=== PATIENT | female | born 1955 | race Caucasian/White ===

== ENCOUNTER 2017-07-27 05:53 | Day surgery (SDC) | payer BC, OTHER ==
[2017-07-22 17:58] VITALS: BMI 28.3
[2017-07-27] MEDS ORDERED: LIDOCAINE HCL/EPINEPHRINE/PF 20 ML VIAL ONE (07:08)
[2017-07-27] MEDS ORDERED: POVIDONE-IODINE 5% OPHTHALMIC PREP 30 ML SOLUTION ONE (07:08)
[2017-07-27] MEDS ORDERED: BACITRACIN 3.5 GM OPTHALMIC OINT TUBE ONE ×2 (07:08→10:18)
[2017-07-27] MEDS ORDERED: BUPIVACAINE HCL/PF 0.5% (5MG/ML) 10 ML VIAL ONE (07:09)
[2017-07-27] MEDS ORDERED: MIDAZOLAM HCL 2 MG/2 ML SINGLE DOSE VIAL ONE ×2 (07:18)
[2017-07-27] MEDS ORDERED: PROPOFOL 20 ML ONE ×2 (07:18→08:12)
[2017-07-27] MEDS ORDERED: ceFAZolin SODIUM 1 GM VIAL ONE (08:08)
[2017-07-27] MEDS ORDERED: ONDANSETRON 4 MG/2 ML VIAL ONE ×2 (08:08→09:36)
[2017-07-27] MEDS ORDERED: DEXAMETHASONE SOD PHOSPHATE 4 MG/1 ML VIAL ONE (08:08)
[2017-07-27] MEDS ORDERED: ONDANSETRON 4 MG/2 ML VIAL IVPUSH PRN (08:16)
[2017-07-27] MEDS ORDERED: oxyCODONE HCL 5 MG TABLET PO PRN (08:16)
[2017-07-27] MEDS ORDERED: LACTATED RINGERS SOLUTION 1,000 ML IV SCH (08:30)
[2017-07-27] MEDS ORDERED: ACETAMINOPHEN 500 MG TABLET (FP) PO PRN (08:47)
[2017-07-27] MEDS ORDERED: ONDANSETRON 4 MG/2 ML VIAL IVPUSH ONE (09:37)
[2017-07-27 10:24] VITALS: TEMP 97.8
[2017-07-27] MEDS ORDERED: oxyCODONE HCL 5 MG TABLET ONE (10:57)
[2017-07-27 11:37] VITALS: BP 132/68; PULSE 68
--- NOTE | 2017-07-27 17:13 | OP ---
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 PROCEDURE: 1. Eyelid marginal lid split and eyelid split with dissection into an anterior and posterior lamella. 2. Recession of anterior lamella with fixation 4 mm below the lid margin. SURGEON: Nabor Wiseman MD ANESTHESIA: Local with sedation. COMPLICATIONS: None. ESTIMATED BLOOD LOSS: 2-3 mL DESCRIPTION OF OPERATIVE PROCEDURE: Patient brought to the operating room, placed on the operating room table. Vital signs per Anesthesia. Tetracaine was placed in both eyes. The margin was marked after being examined, demonstrating that the [place] glands were completely inverted on the posterior surface of this shortened posterior lamella, necessitating an anterior lamella recession. Timeout was performed and the patient was subsequently given intravenous sedation and a 50/50 mixture of 2% Xylocaine and 1:100,000 epinephrine and 0.5% Marcaine was injected for a total of 3 mL in the left lower lid. Patient was prepped and draped in the usual sterile fashion, exposing both eyes, and attention was turned to the left eye. Using a number-11 blade, the lid was split just anterior to the [place]ian glands which again had been cicatricially rotated inwardly toward the eye, and the lid was divided to an anterior lamella consisting of skin and muscle and a posterior lamella consisting of tarsus and conjunctiva. Dissection was carried down along the anterior tarsal surface and then along the septum until the anterior lamella could be recessed at least 4-5 mm. The recessed anterior lamella was now secured to the septum in a recessed position using three double-armed 5-0 chromic sutures. These were passed through the septum and through the anterior lamella which was recessed and tied on the skin first with slip knots, then with permanent knots. In addition, three double-armed 5-0 chromics were passed from the inferior fornix just above the foreshortening, out through the full-thickness eyelid just below the lash line, in order to enhance the recession of the anterior lamella. These were tied, and then, the edge of the recessed anterior lamella was secured to the inferior tarsus or superior septum with three or four single-armed 5-0 chromic sutures to secure the lash line in the recessed position. Any residual orbicularis was trimmed off of the tarsus with some minor cautery. Bacitracin ointment was placed on the eye and in the eye, and the patient was taken to the recovery room in stable condition. There were no complications, and the patient tolerated the procedure well. NABOR WISEMAN M.D. [id number]
== END 2017-07-27 11:40 | disposition home or self-care (01) ==
LOC: FASU 05:53
PROVIDERS: ATTEND Ophthalmology
PROC: 08URX7Z Supplement Left Lower Eyelid with Autologous Tissue Substitute, External Approach (ICD-10-PCS; 2017-07-27)
PROC: 08BR0ZZ Excision of Left Lower Eyelid, Open Approach (ICD-10-PCS; principal; 2017-07-27 08:03)
DX: H02.115 Cicatricial ectropion of left lower eyelid (principal); H31.013 Macula scars of posterior pole (postinflammatory) (post-traumatic), bilateral
CPT/HCPCS: 94760